=== PATIENT | male | born 1990 | race Caucasian/White ===

== ENCOUNTER 2018-01-12 18:00 | Emergency (ER) | payer SELFPAY ==
[~2018-01-12] VITALS: Ht 175.3 cm; Wt 60.0 kg
[2018-01-12] MEDS ORDERED: BACTROBAN TOP (18:29)
[2018-01-12] MEDS ORDERED: KEFLEX500 MG PO (18:29)
[2018-01-12] MEDS ORDERED: MEDDOSEPAK PO (18:29)
[2018-01-12 18:37] VITALS: BP 130/84
== END 2018-01-12 18:37 | disposition home or self-care (01) | DRG 603 ==
LOC: ED 18:00
DX: L03.115 Cellulitis of right lower limb (principal); L03.114 Cellulitis of left upper limb; L24.7 Irritant contact dermatitis due to plants, except food

== ENCOUNTER 2020-07-15 12:35 | Emergency (ER) | payer SELFPAY ==
[~2020-07-15] VITALS: Ht 175.3 cm; Wt 80.0 kg
[~2020-07-15 12:35] MED LIST: BACTROBAN TOP; KEFLEX500 MG PO; MEDDOSEPAK PO
[2020-07-15] MEDS ORDERED: KEFLEX500 M1 PO (13:54)
[2020-07-15 14:08] VITALS: BP 138/83
== END 2020-07-15 14:08 | disposition home or self-care (01) | DRG 603 ==
LOC: ED 12:35
DX: L03.011 Cellulitis of right finger (principal)

== ENCOUNTER 2020-10-02 14:42 | Emergency (ER) | payer SELFPAY ==
[~2020-10-02] VITALS: Ht 175.3 cm; Wt 77.0 kg
[~2020-10-02 14:42] MED LIST changes: +KEFLEX500 M1 PO
[2020-10-02] MEDS ORDERED: KEFLEX500 M1 PO (16:00)
[2020-10-02] MEDS ORDERED: BACTROBAN TOP (16:00)
[2020-10-02 16:25] VITALS: BP 120/67
== END 2020-10-02 16:25 | disposition home or self-care (01) | DRG 603 ==
LOC: ED 14:42
DX: L03.115 Cellulitis of right lower limb (principal)

== ENCOUNTER 2023-02-16 21:14 | Emergency (ER) | payer SELFPAY ==
[~2023-02-16] VITALS: Ht 172.7 cm; Wt 68.0 kg
[2023-02-16 22:02] VITALS: BP 113/85
== END 2023-02-16 22:26 | disposition home or self-care (01) | DRG 563 ==
LOC: ED 21:14
PROC: 2W3EX1Z Immobilization of Right Hand using Splint (ICD-10-PCS; principal; 2023-02-16)
DX: S62.336A Displaced fracture of neck of fifth metacarpal bone, right hand, initial encounter for closed fracture (principal); W22.09XA Striking against other stationary object, initial encounter

== ENCOUNTER 2023-03-23 18:26 | Emergency (ER) | payer OTHER ==
[2023-03-23] VITALS (11 sets, daily range): BP systolic 103–124; BP diastolic 71–88
[~2023-03-23] VITALS: Ht 172.7 cm; Wt 69.0 kg
[2023-03-23] MEDS ORDERED: METHOCARBAMOL500 MG PO (21:01)
[2023-03-23] MEDS ORDERED: EC-NAPROXEN500 MG PO (21:01)
== END 2023-03-23 21:15 | disposition home or self-care (01) | DRG 552 ==
LOC: ED 18:26
DX: M54.2 Cervicalgia (principal); M54.9 Dorsalgia, unspecified; V53.5XXA Driver of pick-up truck or van injured in collision with car, pick-up truck or van in traffic accident, initial encounter